=== PATIENT | male | born 1965 | race Caucasian/White ===

== ENCOUNTER 2024-12-17 06:24 | Day surgery (SDC) | payer OTHER, SELFPAY | END 2024-12-17 13:13 | disposition home or self-care (01) | LOC: GI 06:24 | PROVIDERS: ATTENDING PHYSICIAN Internal Medicine Gastroenterology | DX: Z12.11 Encounter for screening for malignant neoplasm of colon (principal); K64.4 Residual hemorrhoidal skin tags; K64.8 Other hemorrhoids; K57.30 Diverticulosis of large intestine without perforation or abscess without bleeding; K63.89 Other specified diseases of intestine; K62.1 Rectal polyp; K52.9 Noninfective gastroenteritis and colitis, unspecified | CPT/HCPCS: 45380; 88305 ==

== ENCOUNTER → 2025-05-17 10:28 | Outpatient (REF) | payer OTHER, SELFPAY | LOC: HWRAD 10:28 | PROVIDERS: ATTENDING PHYSICIAN Student in an Organized Health Care Education/Training Program | DX: R51.9 Headache, unspecified (principal) | CPT/HCPCS: 70486 ==

== ENCOUNTER 2025-05-20 12:44 | Emergency (ER) | payer OTHER, SELFPAY ==
[2025-05-20] VITALS (14 sets, daily range): BP systolic 67–194; BP diastolic 52–134; BMI 26.5
--- NOTE | 2025-05-20 13:08 | ED.GENMED ---
History of Present Illness
General
Chief Complaint: Blood Pressure Problem
Source: patient
Exam Limitations: none
Time Seen by Provider: 05/20/25 12:56
History of Present Illness
History of Present Illness:
See MDM
Past History
Past History
ED Past Medical History: Hypercholesterolemia and Other (Sinusitis)
ED Past Surgical History: Other (Rhinoplasty)
Social History
Tobacco: Non-smoker
Personal:
Living: with family
Phy Exam
Physical Exam
Physical Exam:
See MDM
Course
Orders/Labs/Results
Orders:
Orders
05/20/25 12:51
Electrocardiogram (*1) Urgent
Reason for Study: Hypertension, Benign
05/20/25 12:52
EKG- Treatment ONCE
05/20/25 13:06
0.9% Sodium Chloride 1000 ml [Nss] 1,000 ml IV BOLUS
Diphenhydramine [Benadryl] 25 mg IV NOW STA
Ketorolac [Toradol] 30 mg IV NOW STA
Labetalol HCl [Trandate] 10 mg IV NOW STA
Metoclopramide [Reglan] 10 mg IV NOW STA
05/20/25 13:24
Basic Metabolic Panel Urgent
Complete Blood Count/With Diff Urgent
Troponin I Urgent
05/20/25 13:28
HydrALAZINE [Apresoline] 10 mg IV NOW STA
Abnormal Lab Results
05/20/25
13:24
Glucose 102 H mg/dl
(70-99)
05/20/25 13:24
05/20/25 13:24
Vital Signs
Initial and Last Documented VS:
Initial Vital Signs
Temp Pulse Resp BP Pulse Ox
97.8 F 73 18 194/134 99
05/20/25 12:48 05/20/25 12:48 05/20/25 12:48 05/20/25 12:48 05/20/25 12:48
Last Documented Vital Signs
Temp Pulse Resp BP Pulse Ox
97.8 F 74 21 155/95 97
05/20/25 12:48 05/20/25 15:01 05/20/25 15:01 05/20/25 15:01 05/20/25 15:01
MDM/Problems Addressed
Differential Diagnosis Includes:
Note:
CHIEF COMPLAINT(S)
Hypertension and headaches.
HISTORY OF PRESENT ILLNESS
The patient is a 60-year-old male with a history of sinus issues who presents with high blood pressure and headaches. The symptoms began in March with sinus congestion treated as a sinus infection. The patient reported using Afrin nasal spray for
about a month during this time. He experienced persistent headaches which led to the use of Zyrtec-D. Approximately three weeks ago, the patient attended a work health clinic for headache management. Although he was not experiencing a headache at
the clinic, his blood pressure was significantly elevated at 221/130 mmHg. He was instructed to discontinue Afrin and Zyrtec-D, but did not immediately start antihypertensive medication. A week later, the patient visited an Ear, Nose, and Throat
specialist (ENT) who recommended the continuation of Zyrtec D. The patients headaches were characterized by a stabbing, shooting pain on the forehead near the eyes. A sinus CT scan was performed. I was able to find the CT results showing no
evidence of sinusitis. The patient was prescribed losartan 50 mg by the clinic and later switched to losartan 100 mg with 12.5 mg hydrochlorothiazide. He has taken six doses of losartan total. Patient also complains of headache and a bandlike
distribution.
CHRONIC MEDICAL CONDITIONS SIGNIFICANTLY AFFECTING CARE
Chronic conditions affecting care: Sinus issues.
SOCIAL DETERMINANTS OF HEALTH
There is no explicit mention of social determinants affecting health in the conversation.
PHYSICAL EXAM
General: Alert, no acute distress.
Skin: Warm, dry.
Head: Normocephalic, atraumatic
Neck: Appears supple, trachea midline.
Eyes, Ears, Nose, Mouth, and Throat: Moist mucous membranes. Pupils equal reactive
Cardiovascular: No signs of cyanosis. Regular rate and rhythm
Respiratory: Respirations are non-labored.
Abdomen: Non-distended
Musculoskeletal: No deformities
Neurological: No focal neurological deficit observed.
Psychiatric: Cooperative, appropriate mood and affect.
PLAN
Administer IV medication for blood pressure reduction and headache management, review sinus CT, and decide on further imaging if necessary.
DIFFERENTIAL DIAGNOSIS
The Differential Diagnosis includes, in no particular order and is not limited to:
- Hypertensive crisis
- Sinusitis
- Medication-induced headache
- Migraine
- Cluster headache
- Tension headache
- Intracranial hemorrhage
- Acute glaucoma
- Allergic rhinitis
- Stroke
SUMMARY OF ENCOUNTER
The patient was seen in the emergency department for management of extremely high blood pressure and severe headaches. A CT scan of the sinuses from a previous visit was reviewed as part of the workup. Immediate treatment focused on lowering the
blood pressure using IV medication and addressing the headache with appropriate medications. The discussion also involved the choice between further imaging or continued symptom observation, with reassurance about the likely benign nature of
symptoms contingent on symptom relief with treatment.
ASSESSMENT
The patient presents with a hypertensive crisis potentially leading to headaches, requiring immediate blood pressure management and further monitoring for potential complications.
MEDICAL DECISION MAKING
- Complexity of Data Reviewed: Chronic conditions affecting care: Sinus issues. Differential diagnosis considered.
- Data:
- Category 1:
- Blood work considered, review of sinus CT initiated.
- Category 2:
- My independent review of sinus CT scans is pending due to awaiting results.
- Category 3:
- None mentioned.
- Risk:
- Prescription medication was prescribed: Losartan and Hydrochlorothiazide.
- Consideration of Admission/Observation was made: Escalation of care including admission/observation was considered given the complexity and risk of the patients presenting complaint, exam findings, and/or their underlying comorbidities. However,
ultimately I feel the patient is safe for outpatient management with close follow-up. Reasoning: Work-up reassuring, does not reveal any acute life/organ threatening processes, patients symptoms well controlled upon reevaluation, reexamination is
reassuring, vitals are stable, patient agreeable with discharge, reliable for follow-up.
DIAGNOSIS
- Hypertensive crisis (ICD-10: I16.0)
- Headache, unspecified (ICD-10: R51.9)
EKG
My independent EKG interpretation is:
- Rhythm: Normal sinus rhythm
- Heart Rate: 78 beats per minute
- [place]: Normal axis
- ST Segment: No ST elevation
- Notable Abnormalities: Questionable left ventricular hypertrophy (LVH)
SUMMARY OF ENCOUNTER
The patient is a 60-year-old male who presented to the emergency department with a hypertensive crisis and severe headaches. Upon examination, his blood pressure was high, and he experienced a headache rated at 4/10. The primary focus was to manage
his blood pressure and alleviate his headache with medications.
EMERGENCY TREATMENTS ADMINISTERED
The patient was administered ketorolac, metoclopramide, ondansetron, diphenhydramine, and additional IV fluids for headache management and hydration.
REASSESSMENT
After initial treatment and observation, the patients blood pressure decreased but began to rise again to 150/100 mmHg. The headache persisted but was milder at 4/10.
PLAN
Continue monitoring blood pressure and headache symptoms, administer further medications if necessary, and consider further imaging based on symptom persistence or worsening.
Prior to discharge, blood pressure has stabilized and headache has improved.
Patient has follow-up with his prescribing physician later this week
MEDICATION RECONCILIATION
Administered medications: ketorolac (Toradol), metoclopramide, ondansetron (Zofran), diphenhydramine (Benadryl).
MEDICAL DECISION MAKING
- Complexity of Data Reviewed: Chronic conditions affecting care include sinus issues. Differential diagnosis considered: Hypertensive crisis, sinusitis, medication-induced headache, migraine, cluster headache, tension headache, intracranial
hemorrhage, acute glaucoma, allergic rhinitis, stroke.
- Data:
- Category 1: Independent interpretation of tests not specifically mentioned in senior hadoop developer.
- Category 2: My independent EKG interpretation shows normal sinus rhythm, heart rate at 78 beats per minute, normal axis, with questionable left ventricular hypertrophy.
- Category 3: No additional consultations with specialists mentioned.
- Risk: Prescription medication was prescribed.
DIAGNOSIS
- Hypertensive crisis (ICD-10: I16.0)
- Headache, unspecified (ICD-10: R51.9)
*Pulse Oximetry
SaO2: 99
Oxygen Mode of Delivery: Room air
Patient hypoxic: no
*Critical Care Note
Total Time (30-74mins, 75-104mins- exclusive of procedures): Not Applicable
ED Attending Note
-
Portions of this chart may have been created with voice recognition software.� Occasional wrong word or��sound alike� substitutions may have occurred due to the inherent limitations of voice recognition software.
Discharge Plan
Departure
Patient Disposition: Home (Routine Discharge)
Date of Disposition: 05/20/25
Time of Disposition: 15:20
Patient with high blood pressure during this ER visit?: Yes
Discharge Problem:
Benign essential HTN
Instructions: High Blood Pressure (DC), BLOOD PRESSURE
Prescriptions:
No Action
cetirizine [Zyrtec] 10 mg Tablet
10 mg PO DAILY
ascorbic acid (vitamin C) [Vitamin C] 500 mg Tablet
500 mg PO DAILY
zinc 50 mg Tablet
50 mg PO DAILY
cholecalciferol (vitamin D3) [Vitamin D3] 25 mcg (1,000 unit) Tablet
25 mcg PO DAILY
MigreLief 200-180-50 mg Tablet
2 tab PO DAILY
amlodipine 5 mg Tablet
5 mg PO HS Qty: 30 0RF
furosemide [Lasix] 40 mg tablet
40 mg PO DAILY Qty: 7 0RF
potassium chloride 10 mEq tablet extended release
10 meq PO DAILY Qty: 7 0RF
simethicone [Gas Relief 80 (simethicone)] 80 mg Tablet,Chewable
80 mg PO QID Qty: 120 0RF
Referrals:
[facility] [Provider Group]
Sarah Worrell CRNP [Family Provider]
Activity Restrictions/Additional Instructions:
Please return for any worsening symptoms.
You may return at any time if you have further concerns.
Please follow up with your doctor at the first available appointment, preferably this week.
Thank you for choosing [facility].
Interventions
Interventions:
*Risk Screen - Suicide Last Done: 05/20/25 12:45
*General Assessment Last Done: 05/20/25 12:48
*Neglect/Abuse Screening Last Done: 05/20/25 12:48
*ED COVID-19 Vaccine History Last Done: 05/20/25 13:24
*ED Influenza Vaccine History Last Done: 05/20/25 13:24
[facility] Fall Risk Assessment Tool Last Done: 05/20/25 13:24
ED- Cardiac Assessment Last Done: 05/20/25 13:38
ED- Neurological Assessment Last Done: 05/20/25 13:38
ED- Pulmonary Assessment Last Done: 05/20/25 13:38
Discharge Date and Time
Print Language: YI
[2025-05-20] MEDS: NSS 1000 IV (13:24)
[2025-05-20 13:35] LABS: Hematocrit 48.9 % (39.0-52.0); Hemoglobin 16.2 g/dL (13.0-18.0); Mean Corp Hgb Conc. 33.1 g/dL (33.0-37.0); Mean Corpuscular Volume 89.7 fL (80.0-94.0); Nucleated Red Blood Cells % 0 % (-); Platelet Count 221 10^3/uL (130-400); Red Cell Dist. Width 12.9 % (11.5-14.5)
--- NOTE | 2025-05-20 13:35 | EDRN ---
Pt has no H/A at this time.
--- NOTE | 2025-05-20 13:49 | EDRN ---
After IV started at [place] 13:20 pt became nuaseated and started to vomit, vomited 3 x, HR decreased into 30's [id number], BP down to SBP 67 then 76. Pt pale and diaphoretic and feeling weak then unable to say certain words. Pt now has increased BP in
110's w/ DBP in low 90's HR 70's and no headache at this time. Dr. Simon in room w/ pt at this time.
[2025-05-20 13:58] LABS: Blood Urea Nitrogen 15 mg/dl (9-20); Calcium 9.6 mg/dl (8.4-10.2); Carbon Dioxide 26 mmol/L (22-30); Chloride 101 mmol/L (98-107); Estimated Creatinine Clearance 123 ml/min; Glucose 102 mg/dl (70-99); Sodium 135 mmol/L (135-145); eGFR > 60.00
--- NOTE | 2025-05-20 14:02 | EDRN ---
BP normal and pt no longer has a headache so per Dr. Simon all meds but IVF on hold at this time.
[2025-05-20 14:25] LABS: Troponin I < 0.012 ng/ml
[2025-05-20] MEDS: REGLAN 10 MG IV (14:59)
[2025-05-20] MEDS: TORADOL 30 MG IV (14:59)
[2025-05-20] MEDS: BENADRYL 25 MG IV (14:59)
--- NOTE | 2025-05-20 15:10 | EDRN ---
Apresoline remains on hold as BP now 155/95. Pt now has return of headache and pain now 11/27. Dr. Simon aware and said to administer benadryl, toradol, and reglan.
--- NOTE | 2025-05-20 15:12 | EDRN ---
Apresoline remains on hold per Dr. Simon, BP 155/89 now
--- NOTE | 2025-05-20 15:17 | EDRN ---
Dr. Simon in room w/ pt and spouse at this time.
== END 2025-05-20 16:35 | disposition home or self-care (01) ==
LOC: EMR 12:44
PROVIDERS: Emergency Medicine; EMERGENCY PHYSICIAN Student in an Organized Health Care Education/Training Program; FAMILY PHYSICIAN Nurse Practitioner
DX: I10 Essential (primary) hypertension (principal); E78.00 Pure hypercholesterolemia, unspecified
CPT/HCPCS: 99284; 96374; 96375 ×2; 96361; 80048; 84484; 85025; 93005